=== PATIENT | female | born 1955 ===

== ENCOUNTER 2017-03-28 09:44 | Emergency (ER) | payer OTHER ==
[2017-03-28 09:44] VITALS: BMI 25.6
[2017-03-28 11:28] LABS: URINE BILIRUBIN NEGATIVE (NEGATIVE); URINE BLOOD NEGATIVE (NEGATIVE); URINE COLOR Yellow (YELLOW); URINE GLUCOSE (UA) NORMAL (Normal); URINE KETONE NEGATIVE (NEGATIVE); URINE LEUKOCYTE ESTERASE 1+ Leu/uL (Negative); URINE PROTEIN NEGATIVE (NEGATIVE); URINE UROBILINOGEN NORMAL mg/dL (0.2-1.0)
[2017-03-28 11:50] LABS: RBC URINE 1 /hpf (0-3)
[2017-03-28 11:51] LABS: TRANSITIONAL EPITHIAL 2 /hpf (0-3); WBC URINE 5 /hpf (0-5)
--- NOTE | 2017-03-28 13:14 | US ---
Pelvic ultrasound History: Pelvic pain. Comparison: None available. Technique: Real-time sonography was performed through the pelvis utilizing transabdominal and transvaginal techniques. Findings: Uterus: 7.3 x 3.3 x 4.0 centimeters. Heterogeneous echotexture. Endometrium measures 3.6 millimeters, within normal limits. No free fluid in the pelvic cul-de-sac. Right ovary: Not well visualized. Left ovary: Not well visualized. Technically limited study. Impression: Technically limited study. Bilateral ovaries not well visualized. Otherwise unremarkable sonographic evaluation of the pelvis.
--- NOTE | 2017-03-28 13:36 | C.PDOC ---
Time Seen by Provider: 03/28/17 10:51 Chief Complaint (Nursing): Abdominal Pain History Per: Patient Onset/Duration Of Symptoms: Days (2) Current Symptoms Are (Timing): Still Present Severity: Moderate Location Of Pain/Discomfort: LLQ Radiation Of Pain To:: Back, Leg Quality Of Discomfort: "Pain" Alleviating Factors: None Additional History Per: Prior Records Abnormal Vaginal Bleeding: No Past Medical History Reviewed: Historical Data, Nursing Documentation, Vital Signs Vital Signs: Last Vital Signs Temp 98.1 F 03/28/17 09:57 Pulse 75 03/28/17 09:57 Resp 16 03/28/17 09:57 BP 109/74 03/28/17 09:57 Pulse Ox 100 03/28/17 13:36 - Medical History PMH: Anemia, Asthma, Depression, Diabetes, Hiatal Hernia, HTN, Hypothyroidism, Mitral Valve Prolapse Surgical History: Cholecystectomy - [facility] Procedures CLOSURE SKIN & SUBCUTANEOUS NEC (09/07/14) TETANUS TOXOID ADMINIST (09/07/14) Family History: States: Unknown Family Hx - Social History Hx Tobacco Use: Yes Hx Alcohol Use: No (DENIED) Hx Substance Use: No - Immunization History Hx Tetanus Toxoid Vaccination: Yes Hx Influenza Vaccination: Yes (2017) Hx Pneumococcal Vaccination: No Review Of Systems Except As Marked, All Systems Reviewed And Found Negative. Constitutional: Negative for: Fever, Weakness Cardiovascular: Negative for: Chest Pain Respiratory: Negative for: Shortness of Breath Gastrointestinal: Negative for: Vomiting Genitourinary: Positive for: Pelvic Pain (left). Negative for: Dysuria, Vaginal Discharge, Vaginal Bleeding Musculoskeletal: Negative for: Neck Pain Skin: Negative for: Rash Neurological: Negative for: Weakness, Numbness Physical Exam - Physical Exam Appears: Non-toxic, No Acute Distress Skin: Normal Color, Warm, Dry, No Rash Head: Atraumatic, Normacephalic Eye(s): bilateral: Normal Inspection, PERRL, EOMI Neck: Normal ROM, Supple Cardiovascular: Rhythm Regular Respiratory: Normal Breath Sounds, No Accessory Muscle Use Gastrointestinal/Abdominal: Soft, Tenderness (mild, left pelvis), No Distention , No Guarding, No Rebound Back: No Vertebral Tenderness Extremity: Normal ROM, No Pedal Edema, No Calf Tenderness Neurological/Psych: Oriented x3, Normal Motor, Normal Sensation ED Course And Treatment O2 Sat by Pulse Oximetry: 100 Pulse Ox Interpretation: Normal - CT Scan/US Pelvic US Other Rad Studies (CT/US): Read By Radiologist, Radiology Report Reviewed CT/US Interpretation: Impression: Technically limited study. Bilateral ovaries not well visualized. Otherwise unremarkable sonographic evaluation of the pelvis. Disposition Counseled Patient/Family Regarding: Studies Performed, Diagnosis, Need For Followup, Rx Given - Disposition Disposition: HOME/ ROUTINE Disposition Time: 13:54 Condition: IMPROVED Additional Instructions: Follow up with your doctor this week for further evaluation and treatment. Return to the ER if you develop fever, vomiting, bloody stools, worsening of symptoms or if you have any other concerns. Prescriptions: traMADol/Acetaminophen [Ultracet 325 MG-37.5 MG] 1 tab PO Q4 PRN #30 tab PRN Reason: Pain Instructions: Pelvic Pain in Women (ED) Forms: [facility] (Indian) - Clinical Impression Clinical Impression: LLQ pain
[2017-03-28 14:20] VITALS: BP 129/77; PULSE 69; RESP 18; TEMP 98.3; O2SAT 99
== END 2017-03-28 14:01 | disposition home or self-care (01) ==
LOC: C.ER 09:44
DX: R10.32 Left lower quadrant pain (principal); E03.9 Hypothyroidism, unspecified; E11.9 Type 2 diabetes mellitus without complications; I10 Essential (primary) hypertension; Z87.891 Personal history of nicotine dependence

== ENCOUNTER 2017-07-10 09:48 | Emergency (ER) | payer MEDICAID, OTHER ==
[2017-07-10 09:48] VITALS: BMI 25.6
--- NOTE | 2017-07-10 10:42 | C.PDOC ---
History Of Present Illness 62 year old female presents to the emergency department following a fall yesterday. Patient states that she fell forward onto the dorsal aspect of her hands with her wrists inverted. Patient reports difficulty with flexion and extension of her fingers, limited by pain. Time Seen by Provider: 07/10/17 10:19 Chief Complaint (Nursing): Finger,Hand,&Wrist History Per: Patient History/Exam Limitations: no limitations Onset/Duration Of Symptoms: Days (1) Current Symptoms Are (Timing): Still Present Quality: "Pain" Exacerbating Factor(s): Movement (flexion and extension of her fingers) Past Medical History Reviewed: Historical Data, Nursing Documentation, Vital Signs Vital Signs: Last Vital Signs Temp 98.5 F 07/10/17 10:53 Pulse 86 07/10/17 10:53 Resp 18 07/10/17 10:53 BP 111/70 07/10/17 10:53 Pulse Ox 98 07/10/17 11:06 - Medical History PMH: Anemia, Asthma, Depression, Diabetes, Hiatal Hernia, HTN, Hyperthyroidism, Hypothyroidism, Mitral Valve Prolapse Denies: Chronic Kidney Disease Surgical History: Cholecystectomy - [facility] Procedures CLOSURE SKIN & SUBCUTANEOUS NEC (09/07/14) TETANUS TOXOID ADMINIST (09/07/14) Family History: States: No Known Family Hx - Social History Hx Tobacco Use: Yes Hx Alcohol Use: No (DENIED) Hx Substance Use: No - Immunization History Hx Tetanus Toxoid Vaccination: Yes Hx Influenza Vaccination: Yes Hx Pneumococcal Vaccination: Yes Review Of Systems Except As Marked, All Systems Reviewed And Found Negative. Musculoskeletal: Positive for: Other (hand pain) Physical Exam - Physical Exam Appears: Well, Non-toxic Skin: Ecchymosis (on right hand palm) Head: Atraumatic, Normacephalic Eye(s): bilateral: Normal Inspection Ear(s): Bilateral: Normal Nose: Normal Neck: Normal, Supple Chest: Symmetrical Cardiovascular: Rhythm Regular Respiratory: Normal Breath Sounds Extremity: Normal ROM (active ROM, limited by pain), Swelling (diffuse, swolling noted to dorsum of right hand and third and fourth MCP joint.), Other ( forearm + arm is normal.) Neurological/Psych: Oriented x3, Normal Speech, Normal Cognition ED Course And Treatment O2 Sat by Pulse Oximetry: 98 (RA) Pulse Ox Interpretation: Normal - Other Rad R HAND X-Ray: Interpreted by Me (NEG) Interpretation: Right hand negative. Progress Note: Patient administered Motrin 600mg PO, Tylenol 650mg PO. An X-ray of the right hand was ordered with three views. Disposition Counseled Patient/Family Regarding: Studies Performed, Diagnosis, Need For Followup - Disposition Referrals: Geoffrey Robles MD [Staff Provider] - [facility] [Outside] [facility] [Outside] Disposition: HOME/ ROUTINE Disposition Time: 10:41 Condition: IMPROVED Additional Instructions: WEAR SPLINT CONTINUOUSLY 1-2 DAYS. FOLLOW UP HAND SURGERY AND/OR PMD IF PERSISTENT SYMPTOMS > 1 WEEK MOTRIN AND/OR TYLENOL DIRECTED FOR PAIN Instructions: Sprain (DC) Forms: [employer] (Mongolian) - Clinical Impression Clinical Impression: Hand sprain - Scribe Statement The provider has reviewed the documentation as recorded by the Scribe (Fabian Looney) Provider Attestation: All medical record entries made by the Scribe were at my direction and personally dictated by me. I have reviewed the chart and agree that the record accurately reflects my personal performance of the history, physical exam, medical decision making, and the department course for this patient. I have also personally directed, reviewed, and agree with the discharge instructions and disposition. Orthopedic Care Application Of:: Volar Splint (APPLIED BY [employer])
[2017-07-10 10:54] VITALS: BP 111/70; PULSE 86; RESP 18; TEMP 98.5
[2017-07-10 10:57] VITALS: O2SAT 98
--- NOTE | 2017-07-10 11:43 | RAD ---
PROCEDURE: Right Hand Radiographs. HISTORY: TRAUMA COMPARISON: None. FINDINGS: BONES: No definitive evidence of acute displaced fracture nor dislocation. If symptoms persist -worsen or occult fracture suspected clinically consider repeat radiographs 7-10 days as most fractures should become radiographically evident in this timeframe. Alternately, CT scan or MRI could be obtained. 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 . There are also triscaphe degenerative osteoarthritic changes as well. SOFT TISSUES: Normal. OTHER FINDINGS: None. IMPRESSION: No definitive evidence of acute displaced fracture nor dislocation. If symptoms persist -worsen or occult fracture suspected clinically consider repeat radiographs 7-10 days as most fractures should become radiographically evident in this timeframe. Alternately, CT scan or MRI could be obtained. 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 . There are also triscaphe degenerative osteoarthritic changes as well.
== END 2017-07-10 10:53 | disposition home or self-care (01) ==
LOC: C.ER 09:48
DX: S63.91XA Sprain of unspecified part of right wrist and hand, initial encounter (principal); W18.30XA Fall on same level, unspecified, initial encounter